=== PATIENT | female | born 2000 | race Caucasian/White ===

== ENCOUNTER 2020-01-18 08:02 | Inpatient (IN) ==
[2020-01-18] MEDS ORDERED: OXYTOCIN 30 UNITS/500 ML BAG IV PRN ×2 (08:34)
[2020-01-18] MEDS: LACTATED RINGER'S 1,000 ML IV PRN ×3 (08:45→13:12)
--- NOTE | 2020-01-18 08:53 | Medical Student H&P ---
Date of Service January 18, 2020 Assessment & Plan Admission and Anticipated Discharge Date Admission Date: Patient would receive pitocin so as to induce labor and once head is at appropriate station, artificial rupture of membrane would be perfomred. Patient would also receive an epidural for pain control when desired. environment would be continually monitored via the heart monitor. ( Category 1) History of Present Illness Chief Complaint: Patient is here to be induced Patient is a 19 year old female presenting at 40 weeks 5 days estimated gestational age as determined by last menstrual period. Patient states receiving Chrissy at 16 weeks because she has a prior history of delivery and spontaneous . Patient is currently Hep B -ve, HIV -ve, rubella immune and COVID-19 -ve. She also had a negative gonorrhea and chlamydia test. Patient's blood type is O +ve. Patient has received adequate immunizations for chronological age as well as her yearly influenza vaccine. Patient hasn't had an abnormal glucose tolerance test result. Patient declined to receive a cell free DNA test for cystic fibrosis or spinal muscular atrophy. Patient denies any bleeding or fluid leak. Patient denies any fever, headache, chest pain, shortness of breath or fatigue. Allergies Allergy/AdvReac Type Severity Reaction Status Date / Time blueberry Allergy Severe ANAPHYLAXIS Verified 01/18/20 09:07 ANESTHESIA Allergy Unknown PSEUDOCHLOINESTERASE Uncoded 01/18/20 09:07 DEFIENCY PLASTIC TAPE Allergy Unknown RASH Uncoded 01/18/20 09:07 Home Medications Home Medications Medication Instructions Recorded Confirmed Type prenat.vits,charity,qpa-zoor-yzulx 1 tab PO DAILY 06/23/19 01/11/20 History ondansetron HCl 4 mg tablet 4 mg PO Q6H PRN #30 tab 06/24/19 01/11/20 Rx Patient History Medical History (Updated 01/02/20 @ 11:09 by Sander Floyd Jr, MD, FACOG) Anxiety and depression Encounter for anatomic survey Encounter for pre-operative examination High cholesterol Hx of migraines Miscarriage Ovarian cyst Pseudocholinesterase deficiency Surgical History Hx of tonsillectomy [place] teeth removed Family History (Updated 06/23/19 @ 13:59 by Pam Bateman) Grandfather (Paternal) Diabetes Dyslipidemia Blood clot in vein Grandmother (Paternal) Diabetes Grandmother (Maternal) Heart disease Hypertension Kidney stones, calcium oxalate Grandfather (Paternal) Heart disease Aunt Peter's thyroiditis Thyroid disease Endometriosis Mother Thyroid disease Endometriosis Social History (Updated 06/23/19 @ 14:02 by Pam Bateman) Smoking Status: Never smoker Second Hand Exposure: No; Hx Alcohol Use: No Hx Substance Use: No Preferred Language: Samoan Communication Ability: Effective Beliefs That Will Affect Care: None marital status: Single marital status details: Juvencio Chu (31) [phone] Current Living Situation: Significant Other and Other Current Living Situation Comment: SO and daughter current occupational status: unemployed Feels Safe at Home: Yes OB History G1- uncomplicated vaginal delivery at 34 weeks G2- spontaneous 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 She has irregular menstrual period occurring every 28-31 days. Never had an STD. She doesn't recall having any pap smears done. Review of Systems All systems reviewed & are unremarkable except as noted in HPI & below Physical Exam Constitutional: WD/WN, vitals as above Neck: normal visual inspection Respiratory: normal respiratory effort, lungs clear to auscultation Cardiovascular: RRR, no murmur, no edema Gastrointestinal (Abdomen): Gravid Psychiatric: A+Ox3, euthymic affect Genitourinary: Manual OB Exam: + cervical dilation (soft) 3 cm, + cervical effacement 50% and + station (- 3) per Dr. Gore Monitoring External Monitor Heart Rate Monitor - 150 bpm baseline with accelerations (10-15 bpm), moderate variability, rare decellerations Tocodynamometer Rare contractions Results & Data ([facility]) Vital Signs (Past 12 Hours) Vital Signs Pulse BP 01/18/20 08:28 93 H 120/77 Code Status & VTE Plan VTE Prophylaxis Plan VTE Prophylaxis will be ordered: Yes
[2020-01-18 08:57] LABS: Hematocrit (blood only) 37.2 % (37-47); Hemoglobin 12.3 g/dL (12.0-16.0); Mean Corpuscular Hemoglobin 28.8 pg (25-34); Mean Corpuscular Volume 87.1 fL (80-100); Mean Platelet Volume 9.7 fL (7.4-10.4); Platelet Count 214 K/uL (130-400); RDW Coefficient of Variation 14.4 % (11.5-14.5); RDW Standard Deviation 45.7 fL (36.4-46.3); Red Blood Count 4.27 M/uL (4.2-5.4); White Blood Count 7.47 K/uL (4.8-10.8)
[2020-01-18 09:02] LABS: Mean Corpuscular Hgb Conc 33.1 g/dL (32-36)
--- NOTE | 2020-01-18 11:10 | Labor Progress Brief Note ---
Date of Service January 18, 2020 Subjective Tolerating contractions, declines epidural at this point Assessment & Plan (1) Post term over 40 weeks: Induction of labor continues. Admission and Anticipated Discharge Date Admission Date: January 18, 2020 Physical Exam Physical Exam: /-2 AROM clear fluid FHT Cat 1 [place] Q3-4 Pit @ 7 Results & Data ([facility]) Vital Signs (Past 12 Hours) Vital Signs Temp Pulse Resp BP 01/18/20 10:51 18 01/18/20 10:13 89 133/78 01/18/20 10:12 18 01/18/20 09:50 18 01/18/20 09:37 18 01/18/20 09:06 90 132/86 01/18/20 09:05 18 01/18/20 08:28 93 H 120/77 01/18/20 08:19 98.8 F 20 Coding Level of Care Code None Diagnoses Post term over 40 weeks O48.0
[2020-01-18] MEDS ORDERED: ePHEDrine sulfate 50 MG/ML AMP ONE (12:41)
[2020-01-18] MEDS ORDERED: BUPIVACAINE 0.25% 30 ML VIAL ONE (12:41)
[2020-01-18] MEDS ORDERED: fentaNYL citrate 100 MCG/2 ML VIAL ONE (12:41)
[2020-01-18] MEDS ORDERED: fentaNYL 2MCG/ML ROPIV 1.25MG/ML 100 ML BAG EPI ONE (12:41)
[2020-01-18] MEDS ORDERED: DiphenhydrAMINE HCL 50 MG/ML VIAL IV PRN (13:10)
[2020-01-18] MEDS ORDERED: NALOXONE HCL 0.4 MG/1 ML VIAL/CARP IV PRN (13:10)
[2020-01-18] MEDS ORDERED: fentaNYL 2MCG/ML ROPIV 1.25MG/ML 100 ML BAG EPI PRN (13:10)
[2020-01-18] MEDS ORDERED: ePHEDrine sulfate 50 MG/ML AMP IV PRN (13:10)
[2020-01-18] MEDS ORDERED: ONDANSETRON INJ 2 MG/ML 2 ML VIAL IV PRN (13:10)
[2020-01-18] MEDS ORDERED: NALOXONE HCL 1 MG in SODIUM CHLORIDE 0.9% 1000ML 1,000 ML IV PRN (13:10)
--- NOTE | 2020-01-18 13:17 | Anesthesiology Consultation ---
Date of Service January 18, 2020 Covid 19 negative on 01/11/20. Assessment & Plan Chart Review Chart Review: Patient NOT seen in Pre Admission Testing and Acceptable Risk for Labor Epidural Consults Requested none ASA ASA2 Proposed Anesthesia Anesthesia Type: Labor Epidural and CSE Risk / Benefits Reviewed With: PT / POA / Parent / Guardian, Accepts Plan and Informed Consent Obtained History Height/Weight Height: 5 ft 5 in Weight: 124.194 kg Allergies Allergy/AdvReac Type Severity Reaction Status Date / Time blueberry Allergy Severe ANAPHYLAXIS Verified 01/18/20 09:07 ANESTHESIA Allergy Unknown PSEUDOCHLOINESTERASE Uncoded 01/18/20 09:07 DEFIENCY PLASTIC TAPE Allergy Unknown RASH Uncoded 01/18/20 09:07 Medications Home Medications Medication Instructions Recorded Confirmed Last Taken prenat.vits,charity,uia-snex-goplr 1 tab PO DAILY 06/23/19 01/11/20 Unknown ondansetron HCl 4 mg tablet 4 mg PO Q6H PRN #30 tab 06/24/19 01/11/20 Unknown Active Medications Generic Name Dose Route Start Last Admin Trade Name Renata PRN Reason Stop Dose Admin Lactated Ringer's 1,000 mls @ 125 mls/hr 01/18/20 08:34 01/18/20 13:12 Lr IV 01/20/20 08:33 999 mls/hr .Q8H PRN Administration L&D Protocol Protocol Oxytocin 30 units in 500 mls @ 7 mls/hr 01/18/20 08:34 01/18/20 10:51 Pitocin IV 01/20/20 08:33 0.42 units/hr .Q24H PRN 7 mls/hr Labor Induction/Augmentation Titration Protocol 0.42 UNITS/HR NPO Date Last Intake of Fluids: 01/18/20 Time Last Intake of Fluids: 12:00 Date Last Intake of Solids: 01/18/20 Time Last Intake of Solids: 08:00 Past Medical History Medical History Anxiety and depression Encounter for anatomic survey Encounter for pre-operative examination High cholesterol Hx of migraines Miscarriage Ovarian cyst Pseudocholinesterase deficiency Exercise / Class Metabolic Activity II 4-5 Yardwork/Stairs/Walk up hill Past Family History Family History Grandfather (Paternal) Diabetes Dyslipidemia Blood clot in vein Grandmother (Paternal) Diabetes Grandmother (Maternal) Heart disease Hypertension Kidney stones, calcium oxalate Grandfather (Paternal) Heart disease Aunt Peter's thyroiditis Thyroid disease Endometriosis Mother Thyroid disease Endometriosis Past Surgical History Surgical History Hx of tonsillectomy [place] teeth removed Past Anesthesia History No Hx of Anesthesia Complications, No Family Hx of Anesthesia Complications and Pseudocholinesterase Deficiency History of PONV No Hx of PONV and No Hx of Motion Sickness Social History Smoking Status: Never smoker Hx Alcohol Use: No Hx Substance Use: No Review of Systems no chest pain or sob Physical Exam Vital Signs Last Vital Signs Temp 37.1 C 01/18/20 08:19 Pulse 89 01/18/20 13:14 Resp 18 01/18/20 11:57 BP 140/87 01/18/20 13:03 Pulse Ox 97 01/18/20 13:14 ENMT Mouth: no TMJ abnormality Thyromental Distance: > or= 3.5 Finger Breadths Mallampati Class: II Neck normal visual inspection Respiratory normal respiratory effort Auscultation: lungs clear to auscultation bilaterally Cardiovascular Rate/Rhythm: regular rate and regular rhythm Musculoskeletal Spine: normal cervical ROM Neurologic moves all extremities Psychiatric Orientation: alert and oriented x 3 Testing Laboratory Results 01/18/20 08:44
--- NOTE | 2020-01-18 18:40 | Delivery Summary ---
Vaginal Delivery Summary Date of Service January 18, 2020 Vaginal Delivery Summary DIAGNOSES: 1. [place] intrauterine at 40w5d gestation. 2. Induction. 3. Group B Streptococcus Neg. PROCEDURE: Spontaneous vaginal delivery without laceration. SURGEON: Lisa Deutsch MD. ASSISTANT TERMINAL MANAGER: None. ESTIMATED BLOOD LOSS: 300 mL. COMPLICATIONS: None. PLACENTA: Spontaneous and intact with a 3-vessel cord. DISPOSITION: Stable to labor and delivery. DESCRIPTION: The patient pushed well and brought the head to in OA position. The 's head was allowed to deliver with contraction force and no further active pushing, with the perineum protected during this time. The shoulders delivered easily with a maternal pushing effort. There was one nuchal cord. The right shoulder was anterior. The shoulders and body delivered without any difficulty, and the infant was placed on the maternal abdomen. It was vigorous and moving all extremities, and making respiratory efforts. The cord was doubly clamped by the MD and then cut by the FOB. The placenta delivered spontaneously and was noted to be intact and with a 3VC. The cervix, vagina and perineum were examined and were found to be without defect requiring repair. The fundus was firm and lochia minimal immediately after delivery.
[2020-01-18] MEDS ORDERED: SUPERCREAM 0.870% 15 GM JAR EXT PRN (19:12)
[2020-01-18] MEDS ORDERED: HYDROCORTISONE ACETATE 25 MG SUPP PR PRN (19:12)
[2020-01-18] MEDS ORDERED: ACETAMINOPHEN 325 MG TAB PO PRN (19:12)
[2020-01-18] MEDS ORDERED: OXYCODONE/ACETAMINOPHEN 5mg/325mg TAB PO PRN (19:12)
[2020-01-18] MEDS ORDERED: BENZOCAINE 20% AER SPR 82.5 GM CAN EXT PRN (19:12)
[2020-01-18] MEDS ORDERED: DIPHTHERIA/TETANUS/PERTUSSIS 0.5 ML SYR/VIAL IM ONE (19:12)
--- NOTE | 2020-01-18 19:31 | Anesthesia Procedure Note ---
Date of Service January 18, 2020 Anesthesia Post Epidural Note Vital Signs Vital Signs: Temp Pulse Resp BP Pulse Ox 37.1 C 106 H 18 124/63 100 01/18/20 17:00 01/18/20 19:27 01/18/20 19:11 01/18/20 19:27 01/18/20 18:28 Pain Intensity Abdomen: Pain Intensity: 0 Notes Mental Status: alert / awake / arousable and participated in evaluation Nausea / Vomiting: adequately controlled Pain: adequately controlled Airway Patency, RR, SpO2: stable & adequate BP & HR: stable & adequate Hydration State: stable & adequate Neuraxial Anesthesia: was administered and sensory block is resolving Anesthetic Complications: no major complications apparent and Pt Satisfied with anesthetic care Epidural: Removed without complications and With tip intact
[2020-01-18] MEDS: DOCUSATE SODIUM 100 MG CAP PO SCH (21:41)
[2020-01-19 06:12] LABS: Hemoglobin 10.6 g/dL (12.0-16.0); Mean Corpuscular Hemoglobin 28.7 pg (25-34); Mean Corpuscular Hgb Conc 33.1 g/dL (32-36); Mean Corpuscular Volume 86.7 fL (80-100); Mean Platelet Volume 9.8 fL (7.4-10.4); Platelet Count 170 K/uL (130-400); RDW Coefficient of Variation 14.3 % (11.5-14.5); Red Blood Count 3.69 M/uL (4.2-5.4); White Blood Count 8.65 K/uL (4.8-10.8)
--- NOTE | 2020-01-19 07:03 | Obstetrical Progress Note ---
Date of Service January 19, 2020 Assessment & Plan (1) Post term over 40 weeks: Recovering normally PPD#1. Continue routine pp care. Subjective Ambulation: ambulating normally Voiding: no voiding problems Passing Gas:: Yes Diet Tolerance:: regular diet Lochia:: Small Physical Exam Constitutional WD/WN, vitals as above Eyes PERRL, conjunctivae normal, anicteric sclerae Neck normal visual inspection Respiratory normal respiratory effort and able to speak in complete sentences; no respiratory distress and no labored breathing Cardiovascular Rate/Rhythm: regular rate and regular rhythm Extremities: no edema Chest (Breasts) Chest: normal inspection of chest Gastrointestinal (Abdomen) Inspection/Auscultation: abdomen normal to inspection Soft, postgravid Psychiatric A+Ox3, euthymic affect Genitourinary OB Exam Abdomen: + fundal height Fundus: + firm and + relation to umbilicus (fundus just below umbilicus); not tender Results & Data ([facility]) Vital Signs (Past 12 Hours) Vital Signs Temp Pulse Pulse Resp BP BP 01/19/20 03:30 97.9 F 93 H 18 122/74 01/18/20 23:15 98.1 F 98 H 18 133/89 01/18/20 21:30 120 H 18 124/70 01/18/20 20:56 121 H 124/70 01/18/20 20:42 110 H 18 127/70 01/18/20 20:27 121 H 133/86 01/18/20 20:11 131 H 18 131/63 01/18/20 19:56 109 H 129/62 01/18/20 19:41 103 H 18 120/60 01/18/20 19:27 106 H 18 120/60 01/18/20 19:11 125 H 18 129/80
--- NOTE | 2020-01-19 07:20 | Medical Student Progress Note ---
Date of Service January 19, 2020 Assessment & Plan Admission and Anticipated Discharge Date Admission Date: Patient is a 19 year old with presenting on post- day one after the uncomplicated spontaneous vaginal delivery of an 8lb girl at 40weeks 5days estimated gestational age by LMP. Patient has been transferred to the hospital floor where she is recuperating. Blood work would be drawn and compared to prior labs. Patient would receive maternal education on care. Patient is GBS -ve, A+ and has positive rubella titers. Subjective Patient is a 19 year old female presenting on post- day one after the uncomplicated spontaneous vaginal delivery of an 8lb girl. Patient states receiving Chrissy injections during the due to a prior history of labor and a prior history of spontaneous . Patient states feeling generally well with a good mood although she only got 3 hours of sleep overnight. Patient intends to bottle feed her baby and started doing so overnight. She denies any difficulty urinating and hasn't bowel movements or passage of gas. Patient hasn't experienced any difficulty ambulating and states no pain apart from mild abdominal tenderness. Patient experienced minor bloody lochia. She denies shortness of breath, headaches, lightheadedness, chest pains or palpitations Physical Exam Constitutional: WD/WN, vitals as above Neck: normal visual inspection Respiratory: normal respiratory effort, lungs clear to auscultation Cardiovascular: Rate/Rhythm: regular rate and regular rhythm Extremities: + pedal edema +2 mild pedal edema present up to tibia. Gastrointestinal (Abdomen): Inspection/Auscultation: abdomen normal to inspection and normal bowel sounds Percussion/Palpation: + abdomen tender (to palpations) Psychiatric: A+Ox3, euthymic affect Genitourinary: OB Exam Abdomen: + fundal height (3-5 cm below the umbilicus) Fundus: + firm Results & Data ([facility]) Vital Signs (Past 12 Hours) Vital Signs Temp Pulse Pulse Resp BP BP 01/19/20 03:30 36.6 C 93 H 18 122/74 01/18/20 23:15 36.7 C 98 H 18 133/89 01/18/20 21:30 120 H 18 124/70 01/18/20 20:56 121 H 124/70 01/18/20 20:42 110 H 18 127/70 01/18/20 20:27 121 H 133/86 01/18/20 20:11 131 H 18 131/63 01/18/20 19:56 109 H 129/62 01/18/20 19:41 103 H 18 120/60 01/18/20 19:27 106 H 18 120/60 01/18/20 19:11 125 H 18 129/80
[2020-01-19] MEDS: PRENATAL VITAMIN 1 TAB PO SCH (09:24)
[2020-01-19] MEDS: DOCUSATE SODIUM 100 MG CAP PO SCH ×2 (09:24→20:53)
[2020-01-19] MEDS: IBUPROFEN 600 MG TAB PO PRN ×2 (10:56→16:41)
[2020-01-20] MEDS: IBUPROFEN 600 MG TAB PO PRN (04:55)
[2020-01-20 05:51] LABS: Hematocrit (blood only) 31.6 % (37-47); Hemoglobin 10.4 g/dL (12.0-16.0)
--- NOTE | 2020-01-20 07:01 | Obstetrical Progress Note ---
Date of Service January 20, 2020 Assessment & Plan (1) Encounter for care and examination after delivery: Post day 2 from [facility]. Doing well. Stable for discharge Subjective Ambulation: ambulating normally Voiding: no voiding problems Passing Gas:: Yes Diet Tolerance:: regular diet Lochia:: Moderate Physical Exam Constitutional WD/WN, vitals as above Respiratory normal respiratory effort; no respiratory distress and no labored breathing Gastrointestinal (Abdomen) Inspection/Auscultation: abdomen normal to inspection; abdomen not distended Percussion/Palpation: abdomen soft; abdomen nontender, no guarding and abdomen not rigid Genitourinary OB Exam Abdomen: + fundal height Fundus: + firm and + relation to umbilicus (Below); not tender and not boggy Results & Data ([facility]) Vital Signs (Past 12 Hours) Vital Signs Temp Pulse Resp BP Pulse Ox 01/19/20 23:55 36.7 C 92 H 17 112/75 96 01/19/20 20:10 36.7 C 100 H 17 110/76 96
[2020-01-20] MEDS: DOCUSATE SODIUM 100 MG CAP PO SCH (07:59)
[2020-01-20] MEDS: PRENATAL VITAMIN 1 TAB PO SCH (07:59)
== END 2020-01-20 10:30 | disposition home or self-care (01) | DRG 807 ==
LOC: 4S1 08:02 → 4S2 21:30

== ENCOUNTER 2021-02-12 07:56 | Inpatient (IN) ==
[2021-02-12] MEDS ORDERED: OXYTOCIN 30 UNITS/500 ML BAG IV PRN ×3 (08:10→16:20)
[2021-02-12 08:28] LABS: Hematocrit (blood only) 33.1 % (37-47); Hemoglobin 10.9 g/dL (12.0-16.0); Mean Corpuscular Hemoglobin 27.7 pg (25-34); Mean Corpuscular Hgb Conc 32.9 g/dL (32-36); Mean Platelet Volume 9.8 fL (7.4-10.4); Platelet Count 226 K/uL (130-400); RDW Coefficient of Variation 14.2 % (11.5-14.5); RDW Standard Deviation 43.7 fL (36.4-46.3); Red Blood Count 3.94 M/uL (4.2-5.4); White Blood Count 7.19 K/uL (4.8-10.8)
--- NOTE | 2021-02-12 08:53 | History & Physical Report ---
Date of Service February 12, 2021 Assessment & Plan (1) Post term over 40 weeks: (2) Obesity affecting : Plan: admit, iv, labs, start pitocin and arom. fhts categ 1. anticip . Admission and Anticipated Discharge Date Admission Date: February 12, 2021 History of Present Illness Chief Complaint: planned induction Primary Care Provider: Diomedes Mejia 20yo at 40 4/7 wks ega for planned elective induction for postdates. Patient denies new complaints or concerns. No rom, no vb. +FM. No ctx. PNC c/b 1. obesity 2. h/o PTD. on vincent 3. acetylcholinesterase def 4. ascus pap, needs pap pp 5. had nl echo done due to not able to see heart anatomy on routine meng u/s PNL rh pos, ri, gbs neg OBH: x 2, sab x 1 GYNH: nl paps no stds Allergies Allergy/AdvReac Type Severity Reaction Status Date / Time blueberry Allergy Severe ANAPHYLAXIS Verified 02/11/21 13:58 succinylcholine AdvReac Severe pseudocholinesterase Verified 02/11/21 13:58 deficiency ANESTHESIA Allergy Unknown PSEUDOCHLOINESTERASE Uncoded 02/11/21 13:58 DEFIENCY PLASTIC TAPE Allergy Unknown RASH Uncoded 02/11/21 13:58 Home Medications Medication Instructions Recorded Confirmed Type prenat.vits,charity,xak-czds-eojzh 1 tab PO DAILY 06/13/20 02/11/21 History Patient History Medical History (Updated 12/06/20 @ 13:36 by Lisa Deutsch MD) Anxiety and depression Encounter for anatomic survey Encounter for pre-operative examination High cholesterol Hx of migraines Miscarriage Ovarian cyst Pseudocholinesterase deficiency Varicella vaccination Surgical History Hx of tonsillectomy [place] teeth removed Family History (Updated 06/13/20 @ 09:57 by Felicity Maxwell) Grandfather (Paternal) Diabetes Dyslipidemia Blood clot in vein Grandmother (Paternal) Diabetes Grandmother (Maternal) Heart disease Hypertension Kidney stones, calcium oxalate Breast cancer Grandfather (Paternal) Heart disease Aunt Peter's thyroiditis Thyroid disease Endometriosis Mother Thyroid disease Endometriosis Ovarian cancer Denies family history of Colorectal cancer Social History (Updated 06/13/20 @ 09:58 by Felicity Tyler Smoking Status: Former smoker Second Hand Exposure: No; Hx Alcohol Use: No Hx Substance Use: No Preferred Language: Malian Communication Ability: Effective Beliefs That Will Affect Care: None marital status: marital status details: Juvencio Chu (32) [phone] Current Living Situation: Spouse and Family Current Living Situation Comment: lives with spoue, 2 children, cat-spouse changing litter current occupational status: unemployed Feels Safe at Home: Yes Assistive Devices: None Review of Systems as per Subjective / HPI Physical Exam Constitutional: WD/WN, vitals as above Respiratory: normal respiratory effort, lungs clear to auscultation Cardiovascular: Rate/Rhythm: regular rate and regular rhythm Gastrointestinal (Abdomen): soft gravid nt Musculoskeletal: no edema nontender calves Neurologic: grossly normal Psychiatric: A+Ox3, euthymic affect Genitourinary: OB Exam Abdomen: + estimated weight (8-9#) Manual OB Exam: + cervical dilation (2.5), + cervical effacement (long) and + station -2 OB Exam Monitor Tracing: + external FHT monitor used, + external uterine monitor used (no ctx), + category I and + normal FHT variability Results & Data ([facility]) Vital Signs (Past 12 Hours) Vital Signs Pulse BP 02/12/21 08:02 96 H 126/77 Coding Level of Care Code None Diagnoses Post term over 40 weeks O48.0 Obesity affecting O99.210
[2021-02-12] MEDS: LACTATED RINGER'S 1,000 ML IV PRN ×2 (09:25→14:22)
--- NOTE | 2021-02-12 11:18 | Labor Progress Brief Note ---
Date of Service February 12, 2021 Subjective feels some ctx, not really seeing on monitor Assessment & Plan (1) Obesity affecting : (2) Post term over 40 weeks: Plan: will see if arom helps labor. c/w pit. fhts categ 1 Admission and Anticipated Discharge Date Admission Date: February 12, 2021 Physical Exam Constitutional: WD/WN, vitals as above Genitourinary: Manual OB Exam: + cervical dilation 3 cm, + cervical effacement (long), + station -2 and + amniotic fluid (AROM) clear (minimal, ? if arom sucessful. ) OB Exam Monitor Tracing: + external FHT monitor used (130 mod variability), + external uterine monitor used (no ctx traced. ), + category I and + normal FHT variability Pit at 5 Results & Data ([facility]) Vital Signs (Past 12 Hours) Vital Signs Temp Pulse Resp BP 02/12/21 11:10 87 131/84 02/12/21 09:35 98.1 F 20 02/12/21 08:02 98.1 F 96 H 20 126/77 Coding Level of Care Code None Diagnoses Obesity affecting O99.210 Post term over 40 weeks O48.0
[2021-02-12] MEDS ORDERED: SODIUM CHLORIDE 0.9% INJ 10 ML VIAL ONE (13:55)
[2021-02-12] MEDS ORDERED: fentaNYL citrate 100 MCG/2 ML VIAL ONE (13:55)
[2021-02-12] MEDS ORDERED: ePHEDrine sulfate 50 MG/ML AMP ONE (13:55)
[2021-02-12] MEDS ORDERED: BUPIVACAINE 0.25% 30 ML VIAL ONE (13:55)
[2021-02-12] MEDS ORDERED: fentaNYL 2MCG/ML ROPIVACAINE 1.25MG/ML 100 ML BAG EPI ONE (13:56)
--- NOTE | 2021-02-12 14:03 | Labor Progress Brief Note ---
Date of Service February 12, 2021 Subjective more pain with ctx Assessment & Plan (1) Post term over 40 weeks: (2) Obesity affecting : Plan: good cx change. desires epidural. will adjust position to see about fhts. categ 2 currently. Admission and Anticipated Discharge Date Admission Date: February 12, 2021 Physical Exam Constitutional: WD/WN, vitals as above Genitourinary: Manual OB Exam: + cervical dilation 5 cm, + cervical effacement 50% and + station -1 OB Exam Monitor Tracing: + external FHT monitor used (150 mod variability), + external uterine monitor used (irreg), + normal FHT variability and + variable decelerations (vs. early decels) Results & Data ([facility]) Vital Signs (Past 12 Hours) Vital Signs Temp Pulse Resp BP 02/12/21 13:17 88 130/89 02/12/21 11:10 87 131/84 02/12/21 09:35 98.1 F 20 02/12/21 08:02 98.1 F 96 H 20 126/77 Coding Level of Care Code None Diagnoses Post term over 40 weeks O48.0 Obesity affecting O99.210
--- NOTE | 2021-02-12 14:15 | Anesthesiology Consultation ---
Date of Service February 12, 2021 Assessment & Plan (1) Encounter for pre-operative examination: Chart Review Chart Review: Acceptable Risk for Labor Epidural Consults Requested none History Height/Weight Height: 5 ft 5 in Weight: 124.284 kg Allergies Allergy/AdvReac Type Severity Reaction Status Date / Time blueberry Allergy Severe ANAPHYLAXIS Verified 02/11/21 13:58 succinylcholine AdvReac Severe pseudocholinesterase Verified 02/11/21 13:58 deficiency ANESTHESIA Allergy Unknown PSEUDOCHLOINESTERASE Uncoded 02/11/21 13:58 DEFIENCY PLASTIC TAPE Allergy Unknown RASH Uncoded 02/11/21 13:58 Medications Active Medications Generic Name Dose Route Start Last Admin Trade Name Freq PRN Reason Stop Dose Admin Oxytocin 30 units in 500 mls @ 13 mls/hr 02/12/21 08:10 02/12/21 12:54 Pitocin IV 02/14/21 08:09 0.78 units/hr .Q24H PRN 13 mls/hr Labor Induction/Augmentation Titration Protocol 0.78 UNITS/HR Lactated Ringer's 1,000 mls @ 125 mls/hr 02/12/21 08:10 02/12/21 13:47 Lr IV 02/14/21 08:09 999 mls/hr .Q8H PRN Infusion L&D Protocol Protocol NPO Date Last Intake of Fluids: 02/12/21 Time Last Intake of Fluids: 14:13 Date Last Intake of Solids: 02/12/21 Past Medical History Medical History Anxiety and depression Encounter for anatomic survey Encounter for pre-operative examination High cholesterol History of premature rupture of membranes (PPROM) PSPROM at 30 weeks delivery at 34 weeks at [facility] Hx of migraines Miscarriage Ovarian cyst Pseudocholinesterase deficiency Varicella vaccination Past Family History Family History Grandfather (Paternal) Diabetes Dyslipidemia Blood clot in vein Grandmother (Paternal) Diabetes Grandmother (Maternal) Heart disease Hypertension Kidney stones, calcium oxalate Breast cancer Grandfather (Paternal) Heart disease Aunt Peter's thyroiditis Thyroid disease Endometriosis Mother Thyroid disease Endometriosis Ovarian cancer Denies family history of Colorectal cancer Past Surgical History Surgical History Hx of tonsillectomy [place] teeth removed Past Anesthesia History Pseudocholinesterase Deficiency Social History Smoking Status: Former smoker Hx Alcohol Use: No Hx Substance Use: No substance use type: does not use Physical Exam Vital Signs Last Vital Signs Temp 36.7 C 02/12/21 09:35 Pulse 88 02/12/21 13:17 Resp 20 02/12/21 09:35 BP 130/89 02/12/21 13:17 Testing Laboratory Results 02/12/21 08:18
[2021-02-12] MEDS ORDERED: NALBUPHINE HCL INJ 10 MG/ML AMP IV PRN (14:57)
[2021-02-12] MEDS ORDERED: ePHEDrine sulfate 50 MG/ML AMP IV PRN (14:57)
[2021-02-12] MEDS ORDERED: NALOXONE HCL 0.4 MG/1 ML VIAL/CARP IV PRN (14:57)
[2021-02-12] MEDS ORDERED: ONDANSETRON INJ 2 MG/ML 2 ML VIAL IV PRN (14:57)
[2021-02-12] MEDS ORDERED: NALOXONE HCL 1 MG in SODIUM CHLORIDE 0.9% 1000ML 1,000 ML IV PRN (14:57)
[2021-02-12] MEDS ORDERED: fentaNYL 2MCG/ML ROPIVACAINE 1.25MG/ML 100 ML BAG EPI PRN (14:57)
[2021-02-12] MEDS ORDERED: diphenhydrAMINE 50 MG/ML VIAL IV PRN (14:57)
--- NOTE | 2021-02-12 16:17 | Delivery Summary ---
Vaginal Delivery Summary Date of Service February 12, 2021 Vaginal Delivery Summary The patient dilated to complete and pushed to deliver a viable female infant Apgars 8 and 9 via over intact perineum. Mouth and nose bulb suctioned at perineum. Shoulders and body delivered with ease. was vigorous and crying at . Cord clamped at 30 seconds of life and infant to maternal abdomen where the cord was then doubly clamped and cut. Placenta delivered spontaneously and intact, three-vessel cord. Hemostasis achieved with dilute pitocin and uterine massage and drainage of the bladder for approximately 130 cc under sterile conditions. Cervix and sulci intact. EBL 300 cc. Mother and baby stable recovery. [facility] Vaginal Delivery Charge Vaginal Delivery Codes: 39863 global code for the antepartum, delivery, and post- Delivery Type Details:
[2021-02-12] MEDS ORDERED: ACETAMINOPHEN 325 MG TAB PO PRN (16:20)
[2021-02-12] MEDS ORDERED: OXYTOCIN 20 UNITS in LACTATED RINGER'S 1,000 ML IV SCH (16:20)
[2021-02-12] MEDS ORDERED: BENZOCAINE 20% AER SPR 82.5 GM CAN EXT PRN (16:20)
[2021-02-12] MEDS ORDERED: DIPHTHERIA/TETANUS/PERTUSSIS 0.5 ML SYR/VIAL IM ONE (16:20)
[2021-02-12] MEDS ORDERED: SUPERCREAM 0.870% 15 GM JAR EXT PRN (16:20)
[2021-02-12] MEDS ORDERED: HYDROCORTISONE ACETATE 25 MG SUPP PR PRN (16:20)
[2021-02-12] MEDS ORDERED: oxyCODONE/ACETAMINOPHEN 5mg/325mg TAB PO PRN (16:20)
--- NOTE | 2021-02-12 18:20 | Anesthesia Procedure Note ---
Date of Service February 12, 2021 Anesthesia Post Epidural Note Vital Signs Vital Signs: Temp Pulse Resp BP Pulse Ox 36.7 C 114 H 20 128/78 100 02/12/21 09:35 02/12/21 18:18 02/12/21 09:35 02/12/21 18:18 02/12/21 16:01 Notes Mental Status: alert / awake / arousable and participated in evaluation Nausea / Vomiting: adequately controlled Pain: adequately controlled Airway Patency, RR, SpO2: stable & adequate BP & HR: stable & adequate Hydration State: stable & adequate Neuraxial Anesthesia: was administered and sensory block is resolving Anesthetic Complications: no major complications apparent and Pt Satisfied with anesthetic care Epidural: Removed without complications and With tip intact Notes: Epidural site clean, dry and intact. No signs of edema, erythema or bruising at insertion site. Pt instructed to request anesthesia if she has residual lower extremity numbness or if she develops lower extremity pain or weakness, back pain or headache.
[2021-02-12] MEDS: DOCUSATE SODIUM 100 MG CAP PO SCH (20:32)
[2021-02-12] MEDS: IBUPROFEN 600 MG TAB PO PRN (20:32)
--- NOTE | 2021-02-13 06:44 | Obstetrical Progress Note ---
Date of Service February 13, 2021 Assessment & Plan (1) examination following vaginal delivery: doing well, ready for d/c home, instructions reviewed. f/u 6wk pp check. bottle feeding, rh pos, ri. Day #:: 1 Subjective Ambulation: ambulating normally Voiding: no voiding problems Diet Tolerance:: regular diet Lochia:: Small Feeding Type:: bottle feeding denies pain Physical Exam Constitutional WD/WN, vitals as above Respiratory normal respiratory effort, lungs clear to auscultation Cardiovascular Rate/Rhythm: regular rate and regular rhythm Gastrointestinal (Abdomen) Inspection/Auscultation: abdomen normal to inspection Percussion/Palpation: abdomen soft Fundus firm 3cm down Musculoskeletal nt calves tr edema Neurologic grossly normal Psychiatric A+Ox3, euthymic affect Results & Data ([facility]) Vital Signs (Past 12 Hours) Vital Signs Temp Pulse Pulse Pulse Resp BP BP 02/13/21 03:45 98.1 F 83 18 02/12/21 23:30 98.6 F 83 18 02/12/21 19:50 99.1 F 100 H 18 112/74 02/12/21 18:48 110 H 143/84 H BP Pulse Ox 02/13/21 03:45 112/74 02/12/21 23:30 111/74 02/12/21 19:50 97 02/12/21 18:48
[2021-02-13] MEDS: DOCUSATE SODIUM 100 MG CAP PO SCH (07:51)
[2021-02-13] MEDS ORDERED: PRENATAL VITAMIN 1 TAB PO SCH (08:00)
[2021-02-13] MEDS: IBUPROFEN 600 MG TAB PO PRN (14:13)
== END 2021-02-13 17:10 | disposition home or self-care (01) | DRG 807 ==
LOC: 4S1 07:56 → 4S2 19:58

== ENCOUNTER 2022-03-20 07:52 | Inpatient (IN) ==
[2022-03-20] MEDS ORDERED: LIDOCAINE 1% LOCAL 20 ML VIAL INFIL PRN (08:04)
[2022-03-20] MEDS ORDERED: OXYTOCIN 30 UNITS/500 ML BAG IV PRN ×3 (08:04→19:48)
[2022-03-20 08:30] LABS: Hematocrit (blood only) 33.9 % (34.1-44.9); Hemoglobin 10.9 g/dl (12.0-16.0); Mean Corpuscular Hgb Conc 32.2 g/dL (32.0-36.0); Mean Corpuscular Volume 80.9 fL (80.0-100.0); Mean Platelet Volume 10.3 fL (9.4-12.3); Platelet Count 244 K/uL (130-400); RDW Coefficient of Variation 15.8 % (11.5-14.5); RDW Standard Deviation 45.8 fL (36.4-46.3); Red Blood Count 4.19 M/uL (3.93-5.22)
--- NOTE | 2022-03-20 08:34 | History & Physical Report ---
Date of Service March 20, 2022 Assessment & Plan (1) 40 weeks gestation of : (2) Encounter for induction of labor: Plan admit, plan pitocin. gbs neg. arom as needed, epidual on demand, anticipate . Admission and Anticipated Discharge Date Admission Date: March 20, 2022 History of Present Illness Chief Complaint: presents for induction Primary Care Provider: NO PCP Patient is a 21yowf with iup at 40 2/7 who presents for induction secondary to postdates. She was seen in the office yesterday and membranes stripped. Was crampy overnight. no lof/vb. hx of abi in first pregnency and a subsequent term delivery x 2. and Delivery Plans Obesity (BMI 40 and higher @ beginning of ) *Growth US @ 32wks *Weekly NSTs @ 34wks *BMI 40 or greater offer detailed/level II anatomy at [facility] Hx delivery @ 34 weeks *plans [facility] History of abnormal PAP--> needs repeat pap 04/2022 Pseudocholinesterase deficiency Flu shot given 02/18/22 SB IOL Post-Dates 03/20 OB Labs: Blood Type O Positive 09/12/21 Antibody Screen NEGATIVE 09/12/21 Hemoglobin 11.3 g/dl (12.0-16.0) L 12/24/21 Hematocrit 34.0 % (34.1-44.9) L 12/24/21 Mean Corpuscular Volume 86.2 fL (80-100) 09/12/21 Platelet Count 245 K/uL (130-400) 09/12/21 Rubella IgG Antibody Immune (Immune) 09/12/21 Rapid Plasma Reagin Nonreactive (Nonreactive) 09/12/21 Hepatitis B Surface Antigen Neg (Neg) 07/24/20 Hepatitis B Surface Antigen. NON-REACTIVE (NON-REACTIVE) 09/12/21 Hepatitis C Antibody (EIA) NON-REACTIVE (NON-REACTIVE) 09/12/21 HIV (1&2) Ab and P24 Ag, 4th Gener Neg (Neg) 07/24/20 HIV (1&2) Ag and Ab Confirmation NON-REACTIVE (NON-REACTIVE) 09/12/21 Glucose 1 Hour 50 gm Load 104 mg/dl (70-130) 12/24/21 OB Optional Labs: Chlamydia trachomatis RNA NOT DETECTED (NOT DETECTED) 09/12/21 Neisseria gonorrhoeae RNA NOT DETECTED (NOT DETECTED) 09/12/21 Labs Reviewed: declines cf/sma/genetics--mln declines afp gbs negative. Allergies Allergy/AdvReac Type Severity Reaction Status Date / Time blueberry Allergy Severe ANAPHYLAXIS Verified 03/19/22 14:03 succinylcholine AdvReac Severe pseudocholinesterase Verified 03/19/22 14:03 deficiency ANESTHESIA Allergy Unknown PSEUDOCHLOINESTERASE Uncoded 03/19/22 14:03 DEFIENCY PLASTIC TAPE Allergy Unknown RASH Uncoded 03/19/22 14:03 Home Medications Medication Instructions Recorded Confirmed Type prenat.vits,charity,[id number]-[id number] 1 tab PO DAILY 08/30/21 03/19/22 History Patient History Medical History Anxiety and depression Encounter for anatomic survey Encounter for pre-operative examination High cholesterol History of premature rupture of membranes (PPROM) PSPROM at 30 weeks delivery [place] [facility] [place]x of migraines Miscarriage Ovarian cyst Pseudocholinesterase deficiency Varicella vaccination Surgical History Hx of tonsillectomy [place] teeth removed Family History Grandfather (Paternal) Diabetes Dyslipidemia Blood clot in vein Grandmother (Paternal) Diabetes Grandmother (Maternal) Heart disease Hypertension Kidney stones, calcium oxalate Breast cancer Grandfather (Paternal) Heart disease Aunt Peter's thyroiditis Thyroid disease Endometriosis Mother Thyroid disease Endometriosis Ovarian cancer Denies family history of Colorectal cancer Social History (Updated 08/30/21 @ 15:07 by Felicity Maxwell) Smoking Status: Former smoker Second Hand Exposure: No; Hx Alcohol Use: No Hx Substance Use: No Preferred Language: Beninese Communication Ability: Effective Visual Impairment: No Limitations Beliefs That Will Affect Care: None marital status: marital status details: Juvencio Chu (33) [phone] Current Living Situation: Spouse and Family Current Living Situation Comment: lives with spouse, 3 children, no pets current occupational status: unemployed current occupation: homemaker Feels Safe at Home: Yes Assistive Devices: None OB History Past Pregnancies Del. Date GA wks Lbr Lgth wt Sex Type del Anes Place Del Prov ? Comment 02/18/15 32 does not know 4lbs 8 oz F Epi dural Other [place] Yes Started laboring at 30 wks, was stopped, SROM at 34 wks after bedrest x4 weeks, transferred to [place]. 04/27/16 Aborted-Spontaneous 01/18/20 40 8lb 12.5oz F Ep idural [facility] Dr. Deutsch No 02/12/21 40 7lb 14oz F Epid ural [facility] Dr. Gutierres No Physical Exam Constitutional: WD/WN, vitals as above Cardiovascular: Extremities: + edema (tr); no calf tenderness Gastrointestinal (Abdomen): obese, soft, nt, nd, gravid Psychiatric: A+Ox3, euthymic affect Genitourinary: cx--3-4/50/-2/soft/mid toco--,oc efm--130s with mod variability, accels to 160s, no decels Results & Data ([facility]) Vital Signs (Past 12 Hours) Vital Signs Pulse BP 03/20/22 08:27 90 125/83 Coding Level of Care Code None Diagnoses 40 weeks gestation of Z3A.40 Encounter for induction of labor Z34.90
[2022-03-20] MEDS: LACTATED RINGER'S 1,000 ML IV PRN ×2 (08:50→15:24)
--- NOTE | 2022-03-20 13:53 | Labor Progress Brief Note ---
Date of Service March 20, 2022 Subjective noting contractions Assessment & Plan (1) Encounter for induction of labor: Plan continue current management. epidural when desires. anticipate . Admission and Anticipated Discharge Date Admission Date: March 20, 2022 Physical Exam Physical Exam: c--4-5/75/-2 arom--clear tooco--q2-4min, pit at 11 efm--125 with mod variability, accels to 150s, no decels Results & Data ([facility]) Vital Signs (Past 12 Hours) Vital Signs Temp Pulse Resp BP 03/20/22 09:00 37.2 C 03/20/22 13:36 81 03/20/22 13:36 128/84 03/20/22 13:06 80 03/20/22 13:06 117/69 03/20/22 12:36 82 03/20/22 12:36 125/82 03/20/22 12:06 83 03/20/22 12:06 132/86 03/20/22 11:36 76 03/20/22 11:36 129/87 03/20/22 11:06 72 03/20/22 11:06 133/85 03/20/22 10:36 82 03/20/22 10:36 123/79 03/20/22 10:06 76 03/20/22 10:06 127/86 03/20/22 08:27 90 125/83 Coding Level of Care Code None Diagnoses Encounter for induction of labor Z34.90
[2022-03-20] MEDS ORDERED: fentaNYL citrate 100 MCG/2 ML VIAL ONE (14:50)
[2022-03-20] MEDS ORDERED: ePHEDrine sulfate 50 MG/ML AMP ONE (14:50)
[2022-03-20] MEDS ORDERED: LIDOCAINE 2%/EPINEPHRINE 1:200,000 20 ML SDV ONE ×2 (14:50→17:11)
[2022-03-20] MEDS ORDERED: BUPIVACAINE 0.25% 30 ML VIAL ONE ×2 (14:50→17:40)
[2022-03-20] MEDS ORDERED: SODIUM CHLORIDE 0.9% INJ 10 ML VIAL ONE (14:50)
[2022-03-20] MEDS ORDERED: fentaNYL 2MCG/ML ROPIVACAINE 1.25MG/ML 100 ML BAG EPI ONE (14:51)
[2022-03-20] MEDS ORDERED: fentaNYL 2MCG/ML ROPIVACAINE 1.25MG/ML 100 ML BAG EPI PRN (14:57)
[2022-03-20] MEDS ORDERED: NALOXONE HCL 1 MG in SODIUM CHLORIDE 0.9% 1000ML 1,000 ML IV PRN (14:57)
[2022-03-20] MEDS ORDERED: NALBUPHINE HCL INJ 10 MG/ML AMP IV PRN (14:57)
[2022-03-20] MEDS ORDERED: ePHEDrine sulfate 50 MG/ML AMP IV PRN (14:57)
[2022-03-20] MEDS ORDERED: NALOXONE HCL 0.4 MG/1 ML VIAL/CARP IV PRN (14:57)
[2022-03-20] MEDS ORDERED: diphenhydrAMINE 50 MG/ML VIAL IV PRN (14:57)
[2022-03-20] MEDS ORDERED: ONDANSETRON INJ 2 MG/ML 2 ML VIAL IV PRN (14:57)
--- NOTE | 2022-03-20 14:59 | Anesthesiology Consultation ---
Date of Service March 20, 2022 Assessment & Plan (1) Encounter for pre-operative examination: Chart Review Chart Review: Patient NOT seen in Pre Admission Testing and Acceptable Risk for Labor Epidural Consults Requested none History Height/Weight Height: 5 ft 5 in Weight: 115.398 kg Allergies Allergy/AdvReac Type Severity Reaction Status Date / Time succinylcholine AdvReac Severe pseudocholinesterase Verified 03/19/22 14:03 deficiency ANESTHESIA Allergy Unknown PSEUDOCHLOINESTERASE Uncoded 03/19/22 14:03 DEFIENCY PLASTIC TAPE Allergy Unknown RASH Uncoded 03/19/22 14:03 Medications Home Medications Medication Instructions Recorded Confirmed Last Taken prenat.vits,charity,hsm-mrla-wseiw 1 tab PO DAILY 08/30/21 03/19/22 Unknown ondansetron HCl 4 mg tablet 4 mg PO Q8H PRN Nausea 03/20/22 03/20/22 Unknown sertraline 50 mg tablet (Zoloft) 50 mg PO DAILY 03/20/22 03/20/22 03/19/22 20:00 Active Medications Generic Name Dose Route Start Last Admin Trade Name Freq PRN Reason Stop Dose Admin Oxytocin 30 units in 500 mls @ 11 mls/hr 03/20/22 08:04 03/20/22 12:47 Pitocin IV 03/22/22 08:03 0.66 units/hr .Q24H PRN 11 mls/hr Labor Induction/Augmentation Titration Protocol 0.66 UNITS/HR Lactated Ringer's 1,000 mls @ 125 mls/hr 03/20/22 08:04 03/20/22 14:55 Lr IV 03/22/22 08:03 999 mls/hr .Q8H PRN Titration L&D Protocol Protocol Past Medical History Medical History Anxiety and depression Encounter for anatomic survey Encounter for pre-operative examination High cholesterol History of premature rupture of membranes (PPROM) PSPROM at 30 weeks delivery at 34 [place] [facility] [place]x of migraines Miscarriage Ovarian cyst Pseudocholinesterase deficiency Varicella vaccination Exercise / Class Metabolic Activity II 4-5 Yardwork/Stairs/Walk up hill Past Family History Family History Grandfather (Paternal) Diabetes Dyslipidemia Blood clot in vein Grandmother (Paternal) Diabetes Grandmother (Maternal) Heart disease Hypertension Kidney stones, calcium oxalate Breast cancer Grandfather (Paternal) Heart disease Aunt Peter's thyroiditis Thyroid disease Endometriosis Mother Thyroid disease Endometriosis Ovarian cancer Denies family history of Colorectal cancer Past Surgical History Surgical History Hx of tonsillectomy [place] teeth removed Past Anesthesia History Pseudocholinesterase Deficiency History of PONV No Hx of PONV and No Hx of Motion Sickness Social History Smoking Status: Former smoker Hx Alcohol Use: No Hx Substance Use: No substance use type: does not use Physical Exam Vital Signs Last Vital Signs Temp 37.2 C 03/20/22 09:00 Pulse 87 03/20/22 15:25 Resp 22 03/20/22 09:00 BP 134/95 03/20/22 15:25 Pulse Ox 99 03/20/22 15:23 Testing Laboratory Results 03/20/22 08:14 Blood Type O Positive 03/20/22 08:14 Antibody Screen NEGATIVE 03/20/22 08:14
--- NOTE | 2022-03-20 17:06 | Labor Progress Brief Note ---
Date of Service March 20, 2022 Subjective got epidural, was good but now has a painful hot spot. Assessment & Plan (1) Encounter for induction of labor: Plan slowly making change, address epidural with anesthesia. anticipate . Admission and Anticipated Discharge Date Admission Date: March 20, 2022 Physical Exam Physical Exam: cx--stretchy /-2 toco--q2-3min, pit at 11 efm--130s wtih mod variability, small accels, early with contractions. Results & Data ([facility]) Vital Signs (Past 12 Hours) Vital Signs Temp Pulse Resp BP Pulse Ox 03/20/22 09:00 37.2 C 22 03/20/22 17:01 89 L 03/20/22 17:01 93 H 03/20/22 17:00 81 03/20/22 17:00 131/87 03/20/22 16:59 96 03/20/22 16:59 82 03/20/22 16:54 97 03/20/22 16:54 82 03/20/22 16:50 90 03/20/22 16:50 83 03/20/22 16:50 137/91 03/20/22 16:49 97 03/20/22 16:49 86 03/20/22 16:44 99 03/20/22 16:44 87 03/20/22 16:39 85 L 03/20/22 16:39 87 03/20/22 16:40 82 03/20/22 16:40 118/82 03/20/22 16:34 95 03/20/22 16:34 82 03/20/22 16:32 89 L 03/20/22 16:31 90 03/20/22 16:32 91 H 03/20/22 16:31 132/84 03/20/22 16:28 98 03/20/22 16:28 84 03/20/22 16:26 90 03/20/22 16:26 96 H 03/20/22 16:23 97 03/20/22 16:23 82 03/20/22 16:19 81 03/20/22 16:19 125/85 03/20/22 16:18 99 03/20/22 16:18 81 03/20/22 16:13 97 03/20/22 16:13 81 03/20/22 16:10 81 03/20/22 16:10 129/81 03/20/22 16:08 98 03/20/22 16:08 78 03/20/22 16:03 96 03/20/22 16:03 83 03/20/22 15:59 77 03/20/22 15:59 133/89 03/20/22 15:58 100 03/20/22 15:58 77 03/20/22 15:53 98 03/20/22 15:53 79 03/20/22 15:50 77 03/20/22 15:50 137/92 03/20/22 15:48 98 03/20/22 15:48 80 03/20/22 15:43 98 03/20/22 15:43 79 03/20/22 15:39 81 03/20/22 15:39 138/87 03/20/22 15:38 99 03/20/22 15:38 83 03/20/22 15:37 87 03/20/22 15:37 146/93 H 03/20/22 15:35 81 03/20/22 15:35 141/87 H 03/20/22 15:31 20 03/20/22 15:31 37.1 C 20 03/20/22 15:33 99 03/20/22 15:33 82 03/20/22 15:33 145/93 H 03/20/22 15:31 77 03/20/22 15:31 142/83 H 03/20/22 15:29 83 03/20/22 15:29 142/90 H 03/20/22 15:28 99 03/20/22 15:28 87 03/20/22 15:28 90 03/20/22 15:28 140/102 H 03/20/22 15:25 87 03/20/22 15:25 134/95 03/20/22 15:23 99 03/20/22 15:23 85 03/20/22 15:23 136/91 03/20/22 15:18 100 03/20/22 15:18 90 03/20/22 15:13 100 03/20/22 15:13 96 H 03/20/22 15:08 100 03/20/22 15:08 96 H 03/20/22 15:06 92 03/20/22 15:06 99 H 03/20/22 15:03 99 03/20/22 15:03 86 03/20/22 14:58 99 03/20/22 14:58 80 03/20/22 14:53 99 03/20/22 14:53 86 03/20/22 14:36 77 03/20/22 14:36 124/78 03/20/22 14:06 77 03/20/22 14:06 145/83 H 03/20/22 13:36 81 03/20/22 13:36 128/84 03/20/22 13:06 80 03/20/22 13:06 117/69 03/20/22 12:36 82 03/20/22 12:36 125/82 03/20/22 12:06 83 03/20/22 12:06 132/86 03/20/22 11:36 76 03/20/22 11:36 129/87 03/20/22 11:06 72 03/20/22 11:06 133/85 03/20/22 10:36 82 03/20/22 10:36 123/79 03/20/22 10:06 76 03/20/22 10:06 127/86 03/20/22 08:27 90 125/83 Coding Level of Care Code None Diagnoses Encounter for induction of labor Z34.90
--- NOTE | 2022-03-20 17:45 | Labor Progress Brief Note ---
Date of Service March 20, 2022 Subjective very uncomfortable, anesthesia addressing. Assessment & Plan (1) Encounter for induction of labor: Plan anticipate soon. fetus overall reassuring. Admission and Anticipated Discharge Date Admission Date: March 20, 2022 Physical Exam Physical Exam: cx--8/100/-1 toco--q2min efm--120s with mod variabiltiy, early with ctx, +accesl Results & Data ([facility]) Vital Signs (Past 12 Hours) Vital Signs Temp Pulse Resp BP Pulse Ox 03/20/22 09:00 37.2 C 22 03/20/22 17:40 90 03/20/22 17:40 104 H 03/20/22 17:39 95 03/20/22 17:39 95 H 03/20/22 17:37 97 H 03/20/22 17:37 162/65 H 03/20/22 17:35 84 L 03/20/22 17:35 89 03/20/22 17:34 98 03/20/22 17:34 96 H 03/20/22 17:34 145/83 H 03/20/22 17:32 88 03/20/22 17:32 149/84 H 03/20/22 17:29 89 L 03/20/22 17:29 89 03/20/22 17:30 94 H 03/20/22 17:30 144/80 H 03/20/22 17:29 89 L 03/20/22 17:29 89 03/20/22 17:28 91 H 03/20/22 17:28 153/90 H 03/20/22 17:26 89 03/20/22 17:26 146/84 H 03/20/22 17:24 98 03/20/22 17:24 101 H 03/20/22 17:25 92 H 03/20/22 17:25 148/86 H 03/20/22 17:24 88 L 03/20/22 17:24 89 03/20/22 17:22 83 03/20/22 17:22 141/81 H 03/20/22 17:20 96 H 03/20/22 17:20 137/81 03/20/22 17:19 99 03/20/22 17:19 88 03/20/22 17:18 82 03/20/22 17:18 131/76 03/20/22 17:17 92 H 03/20/22 17:17 146/97 H 03/20/22 17:14 96 03/20/22 17:15 90 03/20/22 17:14 83 03/20/22 17:15 88 03/20/22 17:10 80 03/20/22 17:10 140/90 03/20/22 17:09 98 03/20/22 17:09 85 03/20/22 17:04 96 03/20/22 17:04 85 03/20/22 17:01 89 L 03/20/22 17:01 93 H 03/20/22 17:00 81 03/20/22 17:00 131/87 03/20/22 16:59 96 03/20/22 16:59 82 03/20/22 16:54 97 03/20/22 16:54 82 03/20/22 16:50 90 03/20/22 16:50 83 03/20/22 16:50 137/91 03/20/22 16:49 97 03/20/22 16:49 86 03/20/22 16:44 99 03/20/22 16:44 87 03/20/22 16:39 85 L 03/20/22 16:39 87 03/20/22 16:40 82 03/20/22 16:40 118/82 03/20/22 16:34 95 03/20/22 16:34 82 03/20/22 16:32 89 L 03/20/22 16:31 90 03/20/22 16:32 91 H 03/20/22 16:31 132/84 03/20/22 16:28 98 03/20/22 16:28 84 03/20/22 16:26 90 03/20/22 16:26 96 H 03/20/22 16:23 97 03/20/22 16:23 82 03/20/22 16:19 81 03/20/22 16:19 125/85 03/20/22 16:18 99 03/20/22 16:18 81 03/20/22 16:13 97 03/20/22 16:13 81 03/20/22 16:10 81 03/20/22 16:10 129/81 03/20/22 16:08 98 11/17/22 16:08 78 03/20/22 16:03 96 03/20/22 16:03 83 03/20/22 15:59 77 03/20/22 15:59 133/89 03/20/22 15:58 100 03/20/22 15:58 77 03/20/22 15:53 98 03/20/22 15:53 79 03/20/22 15:50 77 03/20/22 15:50 137/92 03/20/22 15:48 98 03/20/22 15:48 80 03/20/22 15:43 98 03/20/22 15:43 79 03/20/22 15:39 81 03/20/22 15:39 138/87 03/20/22 15:38 99 03/20/22 15:38 83 03/20/22 15:37 87 03/20/22 15:37 146/93 H 03/20/22 15:35 81 03/20/22 15:35 141/87 H 03/20/22 15:31 20 03/20/22 15:31 37.1 C 20 03/20/22 15:33 99 03/20/22 15:33 82 03/20/22 15:33 145/93 H 03/20/22 15:31 77 03/20/22 15:31 142/83 H 03/20/22 15:29 83 03/20/22 15:29 142/90 H 03/20/22 15:28 99 03/20/22 15:28 87 03/20/22 15:28 90 03/20/22 15:28 140/102 H 03/20/22 15:25 87 03/20/22 15:25 134/95 03/20/22 15:23 99 03/20/22 15:23 85 03/20/22 15:23 136/91 03/20/22 15:18 100 03/20/22 15:18 90 03/20/22 15:13 100 03/20/22 15:13 96 H 03/20/22 15:08 100 03/20/22 15:08 96 H 03/20/22 15:06 92 03/20/22 15:06 99 H 03/20/22 15:03 99 03/20/22 15:03 86 03/20/22 14:58 99 03/20/22 14:58 80 03/20/22 14:53 99 03/20/22 14:53 86 03/20/22 14:36 77 03/20/22 14:36 124/78 03/20/22 14:06 77 03/20/22 14:06 145/83 H 03/20/22 13:36 81 03/20/22 13:36 128/84 03/20/22 13:06 80 03/20/22 13:06 117/69 03/20/22 12:36 82 03/20/22 12:36 125/82 03/20/22 12:06 83 03/20/22 12:06 132/86 03/20/22 11:36 76 03/20/22 11:36 129/87 03/20/22 11:06 72 03/20/22 11:06 133/85 03/20/22 10:36 82 03/20/22 10:36 123/79 03/20/22 10:06 76 03/20/22 10:06 127/86 03/20/22 08:27 90 125/83 Coding Level of Care Code None Diagnoses Encounter for induction of labor Z34.90
--- NOTE | 2022-03-20 18:03 | Communication Note ---
Date of Service: March 20, 2022 pt with sig pain on left side. did not respond to 8ml 2% lido with epi in divided doses. vss. pt 8cm and requesting pain relief. pulled epidural and did cse (same technique as prior epidural but gave 1ml of 0.25% bupivicaine via sab). excellent pain control. vss. will continue to monitor
[2022-03-20] MEDS ORDERED: ACETAMINOPHEN 325 MG TAB PO PRN (19:48)
[2022-03-20] MEDS ORDERED: DIPHTHERIA/TETANUS/PERTUSSIS 0.5 ML SYR/VIAL IM ONE (19:48)
[2022-03-20] MEDS ORDERED: BENZOCAINE 20% AER SPR 82.5 GM CAN EXT PRN (19:48)
[2022-03-20] MEDS ORDERED: METHYLERGONOVINE MALEATE 0.2 MG/ML AMP IM ONE (19:48)
[2022-03-20] MEDS ORDERED: HYDROCORTISONE ACETATE 25 MG SUPP PR PRN (19:48)
[2022-03-20] MEDS ORDERED: bisacodyL 10 MG SUPP PR PRN (19:48)
[2022-03-20] MEDS ORDERED: oxyCODONE/ACETAMINOPHEN 5mg/325mg TAB PO PRN (19:48)
--- NOTE | 2022-03-20 19:53 | Delivery Summary ---
Vaginal Delivery Summary Date of Service March 20, 2022 Vaginal Delivery Summary [facility] Pre-operative Diagnosis: at 40 weeks Post-operative Diagnosis: same Procedure: pitocin induction arom epidural EBL: 300cc Anesthesia: epidural Procedure: Patient presented to labor and delivery for induction of labor for postdates with favorable cervix. pitocin induction. Underwent arom for clear fluid then got epidural. She progressed to c/c/+3. The patient pushed for one contraction to deliver a viable male in coy position. A nuchal cord was reduced and the rest of the baby was delivered easily. The baby was vigorous. The nose and mouth were bulb suctioned and the was placed in the maternal abdomen for drying and attention. Cord was clamped and cut at one minute of life. Cord blood and segment obtained. Placenta delivered spontan eous, intact with a three vessel cord. Cervix/sulci/rectum/perineum were intact. Hemostasis obtained with dilute pitocin and fundal massage and one dose of methergine. Apgars were 8/9. Mother and baby doing well at the end of the delivery. [facility] Vaginal Delivery Charge Delivery Type Details: [facility]
--- NOTE | 2022-03-20 20:16 | Anesthesia Procedure Note ---
Date of Service March 20, 2022 Anesthesia Post Epidural Note Vital Signs Vital Signs: Temp Pulse Resp BP Pulse Ox 37.0 C 90 18 138/70 89 L 03/20/22 19:00 03/20/22 20:15 03/20/22 19:00 03/20/22 20:15 03/20/22 20:10 Pain Intensity Lower Abdomen: Pain Intensity: 4 Notes Mental Status: alert / awake / arousable and participated in evaluation Patient Amnestic to Procedure: No Nausea / Vomiting: adequately controlled Pain: adequately controlled Airway Patency, RR, SpO2: stable & adequate BP & HR: stable & adequate Hydration State: stable & adequate Neuraxial Anesthesia: was administered and sensory block is resolving Anesthetic Complications: no major complications apparent and Pt Satisfied with anesthetic care Epidural: Removed without complications and With tip intact
[2022-03-20] MEDS: DOCUSATE SODIUM 100 MG CAP PO SCH (21:53)
[2022-03-21] MEDS: IBUPROFEN 600 MG TAB PO PRN ×4 (00:09→19:36)
[2022-03-21 06:48] LABS: Hematocrit (blood only) 29.4 % (34.1-44.9); Hemoglobin 9.5 g/dl (12.0-16.0)
--- NOTE | 2022-03-21 06:52 | Obstetrical Progress Note ---
Date of Service March 21, 2022 Assessment & Plan (1) Vaginal delivery: Plan Doing well. Fourth baby. Would like d/c home this evening if all goes well. Day #:: 1 Subjective Ambulation: ambulating normally Voiding: no voiding problems Passing Gas:: Yes Diet Tolerance:: regular diet Lochia:: Small Feeding Type:: bottle feeding NOtes cramping Physical Exam Constitutional WD/WN, vitals as above Cardiovascular Extremities: + edema (tr); no calf tenderness Gastrointestinal (Abdomen) obese, soft, nt, nd ff/ nt at u Psychiatric A+Ox3, euthymic affect Results & Data ([facility]) Vital Signs (Past 12 Hours) Vital Signs Temp Pulse Pulse Resp BP BP Pulse Ox 03/21/22 00:00 36.6 C 83 16 131/83 96 03/20/22 22:48 36.9 C 94 H 18 138/83 96 03/20/22 21:49 36.8 C 18 03/20/22 19:00 37.0 C 18 03/20/22 21:48 92 H 03/20/22 21:48 137/88 03/20/22 21:47 91 H 03/20/22 21:47 141/87 H 03/20/22 21:33 93 H 03/20/22 21:33 138/86 03/20/22 21:18 87 03/20/22 21:18 135/78 03/20/22 21:03 82 03/20/22 21:03 142/82 H 03/20/22 20:48 89 03/20/22 20:48 140/78 03/20/22 20:33 88 03/20/22 20:33 137/87 03/20/22 20:15 90 03/20/22 20:15 138/70 03/20/22 20:10 89 L 03/20/22 20:10 92 H 03/20/22 20:09 96 03/20/22 20:09 94 H 03/20/22 20:10 94 H 03/20/22 20:10 133/68 03/20/22 20:04 98 03/20/22 20:04 96 H 03/20/22 20:04 126/83 03/20/22 19:59 96 03/20/22 19:59 94 H 03/20/22 19:59 91 H 03/20/22 19:59 133/76 03/20/22 19:56 90 03/20/22 19:56 94 H 03/20/22 19:54 95 03/20/22 19:54 90 03/20/22 19:50 90 03/20/22 19:50 100 H 03/20/22 19:50 152/68 H 03/20/22 19:49 94 03/20/22 19:49 100 H 03/20/22 19:44 100 03/20/22 19:44 98 H 03/20/22 19:41 96 H 03/20/22 19:41 145/77 H 03/20/22 19:39 98 03/20/22 19:39 94 H 03/20/22 19:34 95 03/20/22 19:34 100 H 03/20/22 19:32 91 H 03/20/22 19:32 136/88 03/20/22 19:29 99 03/20/22 19:29 92 H 03/20/22 19:24 97 03/20/22 19:24 92 H 03/20/22 19:19 97 03/20/22 19:19 104 H 03/20/22 19:17 93 H 03/20/22 19:17 141/80 H 03/20/22 19:14 95 03/20/22 19:14 101 H 03/20/22 19:09 97 03/20/22 19:09 103 H 03/20/22 19:04 97 03/20/22 19:04 111 H 03/20/22 19:03 87 03/20/22 19:03 147/80 H 03/20/22 18:59 92 03/20/22 19:00 91 03/20/22 18:59 95 H 03/20/22 19:00 92 H 03/20/22 18:54 96 03/20/22 18:54 85 O2 Del Method 03/21/22 00:00 Room Air 03/20/22 22:48 Room Air 03/20/22 21:49 03/20/22 19:00 03/20/22 21:48 03/20/22 21:48 03/20/22 21:47 03/20/22 21:47 03/20/22 21:33 03/20/22 21:33 03/20/22 21:18 03/20/22 21:18 03/20/22 21:03 03/20/22 21:03 03/20/22 20:48 03/20/22 20:48 03/20/22 20:33 03/20/22 20:33 03/20/22 20:15 03/20/22 20:15 03/20/22 20:10 03/20/22 20:10 03/20/22 20:09 03/20/22 20:09 03/20/22 20:10 03/20/22 20:10 03/20/22 20:04 03/20/22 20:04 03/20/22 20:04 03/20/22 19:59 03/20/22 19:59 03/20/22 19:59 03/20/22 19:59 03/20/22 19:56 03/20/22 19:56 03/20/22 19:54 03/20/22 19:54 03/20/22 19:50 03/20/22 19:50 03/20/22 19:50 03/20/22 19:49 03/20/22 19:49 03/20/22 19:44 03/20/22 19:44 03/20/22 19:41 03/20/22 19:41 03/20/22 19:39 03/20/22 19:39 03/20/22 19:34 03/20/22 19:34 03/20/22 19:32 03/20/22 19:32 03/20/22 19:29 03/20/22 19:29 03/20/22 19:24 03/20/22 19:24 03/20/22 19:19 03/20/22 19:19 03/20/22 19:17 03/20/22 19:17 03/20/22 19:14 03/20/22 19:14 03/20/22 19:09 03/20/22 19:09 03/20/22 19:04 03/20/22 19:04 03/20/22 19:03 03/20/22 19:03 03/20/22 18:59 03/20/22 19:00 03/20/22 18:59 03/20/22 19:00 03/20/22 18:54 03/20/22 18:54
[2022-03-21] MEDS: PRENATAL VITAMIN 1 TAB PO SCH (07:33)
[2022-03-21] MEDS: DOCUSATE SODIUM 100 MG CAP PO SCH ×2 (07:33→20:00)
[2022-03-21] MEDS ORDERED: bisacodyL 5 MG TABEC PO SCH (20:00)
[2022-03-22] MEDS: IBUPROFEN 600 MG TAB PO PRN ×2 (00:05→04:56)
--- NOTE | 2022-03-22 07:37 | Obstetrical Progress Note ---
Date of Service March 22, 2022 Assessment & Plan (1) Vaginal delivery: Plan 21 yo PP2 from , doing well -Meeting all pp milestones -O+/rubella immune/ -f/u 6 weeks for appt, stable for dc home today Subjective Ambulation: ambulating normally Voiding: no voiding problems Passing Gas:: Yes Diet Tolerance:: regular diet Lochia:: Small Feeding Type:: bottle feeding Pain well managed with medication Review of Systems Denies fevers, chills, n/v, JOSÉ, CP, SOB Physical Exam Constitutional WD/WN, vitals as above no acute distress Respiratory normal respiratory effort, lungs clear to auscultation Cardiovascular RRR, no murmur, no edema Gastrointestinal (Abdomen) Percussion/Palpation: abdomen soft; abdomen nontender fundus firm at umbilicus and NT Musculoskeletal BLE symmetric, nonerythematous, nontender Results & Data ([facility]) Vital Signs (Past 12 Hours) Vital Signs Temp Pulse Resp BP Pulse Ox O2 Del Method 03/21/22 23:02 97.5 F L 84 18 126/83 95 Room Air
[2022-03-22] MEDS: PRENATAL VITAMIN 1 TAB PO SCH (07:48)
[2022-03-22] MEDS: DOCUSATE SODIUM 100 MG CAP PO SCH (07:48)
[2022-03-22 08:18] VITALS: BP 131/87; PULSE 78; TEMP 97.9; O2SAT 97
== END 2022-03-22 14:15 | disposition home or self-care (01) | DRG 807 ==
LOC: 4S1 07:52 → 4E2 23:27

== ENCOUNTER 2023-08-19 12:57 | Inpatient (IN) ==
[2023-08-19] MEDS ORDERED: LIDOCAINE 1% LOCAL 20 ML VIAL INFIL PRN (13:42)
--- NOTE | 2023-08-19 13:52 | History & Physical Report ---
Date of Service August 19, 2023 Assessment & Plan (1) Encounter for induction of labor: (2) complicated by umbilical cord varix in antepartum period: (3) Obesity affecting : (4) Short interval between pregnancies complicating , antepartum: Plan admit, iv, labs. start pitocin. fhts categ 1. wu ripening balloon placed. will plan arom when able. support given as pt states will not have a support person of her own. Admission and Anticipated Discharge Date Admission Date: August 19, 2023 History of Present Illness Chief Complaint: induction Primary Care Provider: Radha Mckinney 22yo at 40+wks ega presents LD with cc of planned induction for umbilical vein varix, obesity. She notes no rom, vb. FM. No ctx. PNC c/b 1. obesity 2. umbilical vein varix--saw mfm 3. poor social situation, PFA from FOB, mother passed lung cancer during preg 4. Abnl pap, due for colpo in preg but could not make it, plan PP colpo with [facility] 5. Wants btl 6. Short interval PNL rh pos, ri, gbs neg OBH: x 4 (one at 34wks, all others term) sab x 1 GYNH: nl paps, no stds Allergies Allergy/AdvReac Type Severity Reaction Status Date / Time adhesive tape Allergy plastic Verified 08/19/23 13:50 tape = rash succinylcholine AdvReac Severe pseudocholinesterase Verified 08/18/23 10:08 deficiency ANESTHESIA Allergy Unknown PSEUDOCHLOINESTERASE Uncoded 08/18/23 10:08 DEFIENCY Home Medications Medication Instructions Recorded Confirmed Type prenat.vits,charity,ubl-gjrb-ryrcj 1 tab PO DAILY 08/30/21 08/18/23 History escitalopram oxalate [Lexapro] PO 12/31/22 08/18/23 History Patient History Medical History Varicella vaccination Encounter for pre-operative examination Pseudocholinesterase deficiency History of premature rupture of membranes (PPROM) PSPROM at 30 weeks delivery at 34 weeks at [facility] Anxiety and depression Ovarian cyst Hx of migraines High cholesterol Miscarriage Surgical History [place] teeth removed Hx of tonsillectomy Family History Grandfather (Paternal) Diabetes Dyslipidemia Blood clot in vein Grandmother (Paternal) Diabetes Grandmother (Maternal) Heart disease Hypertension Kidney stones, calcium oxalate Breast cancer Grandfather (Paternal) Heart disease Aunt Epter's thyroiditis Thyroid disease Endometriosis Mother Thyroid disease Endometriosis Ovarian cancer Lung cancer Denies family history of Colorectal cancer Social History Smoking Status: Never smoker Second Hand Exposure: No; Do You Dip or Chew Tobacco: No; Hx Alcohol Use: No Hx Substance Use: No Preferred Language: Bulgarian Communication Ability: Effective Visual Impairment: No Limitations Diamond Grinder Required: No Beliefs That Will Affect Care: None marital status: marital status details: declines to list FOB Current Living Situation: Spouse and Family Current Living Situation Comment: lives with spouse, 4 children, hamster current occupational status: unemployed current occupation: homemaker Feels Safe at Home: Yes Assistive Devices: None Review of Systems as per Subjective / HPI Physical Exam Constitutional: WD/WN, vitals as above Respiratory: normal respiratory effort, lungs clear to auscultation Cardiovascular: Rate/Rhythm: regular rate and regular rhythm Gastrointestinal (Abdomen): soft gravid nt efw 7-8# Musculoskeletal: no edema nontender calves Neurologic: grossly normal Psychiatric: A+Ox3, euthymic affect Genitourinary: Manual OB Exam: + cervical dilation (2), + cervical effacement 20% and + station -2 OB Exam Monitor Tracing: + external FHT monitor used, + external uterine monitor used (no ctx), + category I and + normal FHT variability PROCEDURE: sse cx visualized, grasped on ant lip with ring forcep, wu through os and balloon inflated with 40cc sterile water. Spec removed, wu taped to leg. pt ashvin well. Results & Data Vital Signs (Past 12 Hours) Vital Signs Pulse BP 08/19/23 13:09 93 H 117/67 Coding Level of Care Code None Diagnoses Encounter for induction of labor Z34.90 complicated by umbilical cord varix in antepartum period O26.899 Obesity affecting O99.210 Short interval between pregnancies complicating , antepartum O09.899
[2023-08-19] MEDS: LACTATED RINGER'S 1,000 ML IV PRN (14:10)
[2023-08-19 14:29] LABS: Hematocrit (blood only) 28.8 % (37.0-47.0); Hemoglobin 9.7 g/dl (12.0-16.0); Mean Corpuscular Hgb Conc 33.7 g/dL (32.0-36.0); Mean Platelet Volume 10.5 fL (9.4-12.4); Platelet Count 189 K/uL (130-400); RDW Coefficient of Variation 14.5 % (11.5-14.5); RDW Standard Deviation 42.9 fL (36.4-46.3); Red Blood Count 3.47 M/uL (4.20-5.40); White Blood Count 8.23 K/ul (4.8-10.8)
[2023-08-19] MEDS: OXYTOCIN 30 UNITS/NSS 30 UNITS/500 ML BAG IV PRN ×2 (14:30→20:57)
[2023-08-19] MEDS ORDERED: SODIUM CHLORIDE 0.9% 250 ML IV PRN (14:54)
--- NOTE | 2023-08-19 15:56 | Labor Progress Brief Note ---
Date of Service August 19, 2023 Subjective wu did fall out, pit infusing Assessment & Plan (1) Encounter for induction of labor: (2) complicated by umbilical cord varix in antepartum period: (3) Obesity affecting : (4) Short interval between pregnancies complicating , antepartum: Plan good cx change. c/w pit to get labor pattern. epidural when desires. fhts categ 1. Admission and Anticipated Discharge Date Admission Date: August 19, 2023 Physical Exam Constitutional: WD/WN, vitals as above Genitourinary: Manual OB Exam: + cervical dilation (5), + cervical effacement (75%), + station -2 and + amniotic fluid (arom) clear OB Exam Monitor Tracing: + external FHT monitor used, + external uterine monitor used (q2-3), + category I and + normal FHT variability Results & Data Vital Signs (Past 12 Hours) Vital Signs Temp Pulse Resp BP O2 Del Method 08/19/23 15:38 78 112/69 08/19/23 15:00 18 08/19/23 15:00 18 08/19/23 14:30 16 08/19/23 14:30 16 08/19/23 14:00 18 08/19/23 14:00 18 08/19/23 13:51 98.2 F 18 Room Air 08/19/23 13:09 93 H 117/67 Coding Level of Care Code None Diagnoses Encounter for induction of labor Z34.90 complicated by umbilical cord varix in antepartum period O26.899 Obesity affecting O99.210 Short interval between pregnancies complicating , antepartum O09.899
[2023-08-19] MEDS ORDERED: ePHEDrine sulfate 50 MG/ML AMP IV PRN (16:48)
[2023-08-19] MEDS ORDERED: NALBUPHINE HCL 5 MG in SYRINGE 0 ML IV PRN (16:48)
[2023-08-19] MEDS ORDERED: NALOXONE HCL 0.4 MG/1 ML VIAL/CARP IV PRN (16:48)
[2023-08-19] MEDS ORDERED: fentaNYL citrate PF 100 MCG/2 ML VIAL EPI PRN (16:48)
[2023-08-19] MEDS ORDERED: fentANYL 2 MCG/ML BUPIVacaine 0.125%-NSS 100ML BAG EPI PRN (16:48)
[2023-08-19] MEDS ORDERED: ROPIVACAINE 0.5% PF 5 MG/ML 20 ML VIAL EPI PRN (16:48)
[2023-08-19] MEDS ORDERED: LIDOCAINE 2% MPF LOCAL 5 ML VIAL EPI PRN (16:48)
[2023-08-19] MEDS ORDERED: NALOXONE HCL 1 MG in SODIUM CHLORIDE 0.9% 1,000 ML IV PRN (16:48)
[2023-08-19] MEDS ORDERED: BUPIVACAINE 0.25% PF 30 ML VIAL EPI PRN (16:48)
[2023-08-19] MEDS ORDERED: SODIUM CHLORIDE 0.9% PF INJ 10 ML VIAL EPI PRN (16:48)
[2023-08-19] MEDS ORDERED: diphenhydrAMINE 50 MG/ML VIAL IV PRN (16:48)
--- NOTE | 2023-08-19 16:48 | Anesthesiology Consultation ---
Date of Service August 19, 2023 Assessment & Plan Chart Review Chart Review: Acceptable Risk for Labor Epidural Consults Requested none History Height/Weight Height: 5 ft 5 in Weight: 96.615 kg Allergies Allergy/AdvReac Type Severity Reaction Status Date / Time adhesive tape Allergy plastic Verified 08/19/23 13:50 tape = rash succinylcholine AdvReac Severe pseudocholinesterase Verified 08/18/23 10:08 deficiency latex AdvReac Itching Verified 08/19/23 14:49 ANESTHESIA Allergy Unknown PSEUDOCHLOINESTERASE Uncoded 08/18/23 10:08 DEFIENCY Medications Home Medications Medication Instructions Recorded Confirmed Last Taken prenat.vits,charity,xoo-ebkv-qyykt 1 tab PO DAILY 08/30/21 08/18/23 Unknown escitalopram oxalate [Lexapro] PO 12/31/22 08/18/23 Unknown Active Medications Generic Name Dose Route Start Last Admin Trade Name Freq PRN Reason Stop Dose Admin Oxytocin 30 units in 500 mls @ 5 mls/hr 08/19/23 13:42 08/19/23 15:45 Pitocin 30 Units/Nss IV 08/21/23 13:41 0.3 units/hr .Q24H PRN 5 mls/hr Labor Induction/Augmentation Titration Protocol 0.3 UNITS/HR Lactated Ringer's 1,000 mls @ 125 mls/hr 08/19/23 13:42 08/19/23 14:10 Lr IV 08/21/23 13:41 125 mls/hr .Q8H PRN Administration L&D Protocol Protocol Past Medical History Medical History Varicella vaccination Encounter for pre-operative examination Pseudocholinesterase deficiency History of premature rupture of membranes (PPROM) PSPROM at 30 weeks delivery at 34 weeks at [facility] Anxiety and depression Ovarian cyst Hx of migraines High cholesterol Miscarriage Past Family History Family History Grandfather (Paternal) Diabetes Dyslipidemia Blood clot in vein Grandmother (Paternal) Diabetes Grandmother (Maternal) Heart disease Hypertension Kidney stones, calcium oxalate Breast cancer Grandfather (Paternal) Heart disease Aunt Peter's thyroiditis Thyroid disease Endometriosis Mother Thyroid disease Endometriosis Ovarian cancer Lung cancer Denies family history of Colorectal cancer Past Surgical History Surgical History [place] teeth removed Hx of tonsillectomy Social History Smoking Status: Former smoker Do You Dip or Chew Tobacco: No Hx Alcohol Use: No Hx Substance Use: No substance use type: does not use Review of Systems Constitutional: as per Subjective / HPI Physical Exam Vital Signs Last Vital Signs Temp 36.8 C 08/19/23 13:51 Pulse 77 08/19/23 16:47 Resp 18 08/19/23 16:00 BP 126/88 08/19/23 16:47 Pulse Ox 87 L 08/19/23 16:47 O2 Del Method Room Air 08/19/23 13:51 Constitutional WD/WN, vitals as above Respiratory normal respiratory effort, lungs clear to auscultation Cardiovascular Rate/Rhythm: regular rate and regular rhythm Psychiatric A+Ox3, euthymic affect Genitourinary Manual OB Exam: + cervical dilation (5), + cervical effacement (75%) + 20%, + station + -2 and + amniotic fluid (arom) + clear OB Exam Monitor Tracing: + external FHT monitor used, + external uterine monitor used (q2-3), + category I and + normal FHT variability Testing Laboratory Results 08/19/23 14:10 Blood Type O Positive 08/19/23 14:10 Antibody Screen NEGATIVE 08/19/23 14:10
[2023-08-19] MEDS: fentANYL 2 MCG/ML BUPIVacaine 0.125%-NSS 100ML BAG ONE (17:16)
[2023-08-19] MEDS: BUPIVACAINE 0.25% PF 30 ML VIAL ONE (17:19)
[2023-08-19] MEDS: LIDOCAINE 2%/EPINEPHRINE 1:200,000 20 ML PF ONE (17:19)
[2023-08-19] MEDS: fentaNYL citrate PF 100 MCG/2 ML VIAL EPI STA (17:20)
[2023-08-19] MEDS: LIDOCAINE 2%/EPINEPHRINE 1:200,000 20 ML PF EPI STA (17:20)
[2023-08-19] MEDS: fentaNYL citrate PF 100 MCG/2 ML VIAL ONE (17:20)
[2023-08-19] MEDS: BUPIVACAINE 0.25% PF 30 ML VIAL EPI STA (17:20)
[2023-08-19] MEDS: SODIUM CHLORIDE 0.9% PF INJ 10 ML VIAL EPI STA (17:22)
--- NOTE | 2023-08-19 20:41 | Delivery Summary ---
Vaginal Delivery Summary Date of Service August 19, 2023 Vaginal Delivery Summary The patient dilated to complete and pushed to deliver a viable female infant Apgars 8 and 9 via over intact perineum. Mouth and nose bulb suctioned at perineum. Loose nuchal x 2 reduced. Shoulders and body delivered with ease. Infant was vigorous and crying at . Cord clamped at 36 seconds of life and to maternal abdomen where the cord was then doubly clamped and cut. Placenta delivered spontaneously and intact, three-vessel cord. Hemostasis achieved with dilute pitocin and uterine massage. Cervix and sulci intact. QBL 49cc. Mother and baby stable in recovery. [facility] Vaginal Delivery Charge Delivery Type Details:
[2023-08-19] MEDS ORDERED: bisacodyL 10 MG SUPP PR PRN (21:56)
[2023-08-19] MEDS ORDERED: HYDROCORTISONE ACETATE 25 MG SUPP PR PRN (21:56)
[2023-08-19] MEDS ORDERED: OXYTOCIN 30 UNITS/NSS 30 UNITS/500 ML BAG IV PRN (21:56)
[2023-08-19] MEDS ORDERED: oxyCODONE/ACETAMINOPHEN 5mg/325mg TAB PO PRN (21:56)
[2023-08-19] MEDS: ePHEDrine sulfate 50 MG/ML AMP ONE (22:20)
[2023-08-19] MEDS: SODIUM CHLORIDE 0.9% PF INJ 10 ML VIAL ONE (22:21)
[2023-08-19] MEDS: DOCUSATE SODIUM 100 MG CAP PO SCH (22:24)
[2023-08-19] MEDS: IBUPROFEN 600 MG TAB PO PRN (22:24)
[2023-08-19] MEDS: OXYTOCIN 20 UNITS/LR 1,002 ML IV SCH (22:52)
--- NOTE | 2023-08-20 03:40 | Obstetrical Progress Note ---
Date of Service August 20, 2023 Assessment & Plan (1) examination following vaginal delivery: Plan doing well, stable. rhpos, ri, bottle feeding. routine care. desires btl, will stop by office and sign ma tubal papers before going home after dc from here. pt aware. Day #:: 1 Subjective Ambulation: ambulating normally Voiding: no voiding problems Diet Tolerance:: regular diet Lochia:: Small Feeding Type:: bottle feeding no pain issues Constitutional: + as per Subjective / HPI Physical Exam Constitutional WD/WN, vitals as above Respiratory normal respiratory effort, lungs clear to auscultation Cardiovascular Rate/Rhythm: regular rate and regular rhythm Gastrointestinal (Abdomen) Inspection/Auscultation: abdomen normal to inspection Percussion/Palpation: abdomen soft Fundus firm 1cm down Musculoskeletal nt calves tr edema Neurologic grossly normal Psychiatric A+Ox3, euthymic affect Results & Data Vital Signs (Past 12 Hours) Vital Signs Temp Pulse Pulse Resp BP BP Pulse Ox 08/20/23 02:35 97.9 F 71 20 106/70 98 08/19/23 23:10 98.1 F 71 20 109/82 99 08/19/23 22:35 98.6 F 18 08/19/23 22:20 70 120/69 08/19/23 22:06 76 122/74 08/19/23 22:05 76 18 122/74 08/19/23 21:50 79 102/63 08/19/23 21:36 73 93/59 L 08/19/23 21:35 73 18 93/59 L 08/19/23 21:20 97.9 F 18 08/19/23 21:20 80 109/64 08/19/23 21:11 78 98 08/19/23 21:06 77 97 08/19/23 21:05 80 16 109/64 08/19/23 21:05 75 124/70 08/19/23 21:01 139 H 99 08/19/23 20:56 78 98 08/19/23 20:51 77 118/59 L 97 08/19/23 20:50 97.9 F 18 08/19/23 20:47 91 H 94 08/19/23 20:46 90 98 08/19/23 20:41 84 98 08/19/23 20:36 90 98 08/19/23 20:35 97.7 F 18 08/19/23 20:35 86 92/65 L 08/19/23 20:31 89 98 08/19/23 20:30 86 106/66 08/19/23 20:26 97 H 98 08/19/23 20:25 22 08/19/23 20:25 22 08/19/23 20:21 90 99 08/19/23 20:16 86 100 08/19/23 20:15 82 128/80 08/19/23 20:11 91 H 99 08/19/23 20:06 78 100 08/19/23 20:01 92 H 99 08/19/23 20:00 80 128/82 08/19/23 19:56 82 100 08/19/23 19:51 79 99 08/19/23 19:46 77 100 08/19/23 19:45 78 120/77 08/19/23 19:41 80 100 08/19/23 19:36 80 99 08/19/23 19:31 75 98 08/19/23 19:30 18 08/19/23 19:30 18 08/19/23 19:29 73 121/74 08/19/23 19:26 77 98 08/19/23 19:21 80 98 08/19/23 19:16 74 98 08/19/23 19:14 85 117/75 08/19/23 19:11 79 99 08/19/23 19:06 74 99 08/19/23 19:01 79 95 08/19/23 19:00 98.6 F 68 20 110/69 08/19/23 18:56 71 99 08/19/23 18:51 79 100 08/19/23 18:46 75 99 08/19/23 18:45 76 116/73 08/19/23 18:41 79 100 08/19/23 18:36 74 100 08/19/23 18:31 100 08/19/23 18:31 76 08/19/23 18:31 86 119/69 08/19/23 18:30 16 08/19/23 18:30 16 08/19/23 18:26 75 100 08/19/23 18:21 74 100 08/19/23 18:16 75 100 08/19/23 18:14 76 97/71 L 08/19/23 18:11 72 100 08/19/23 18:06 76 100 08/19/23 18:01 77 100 08/19/23 18:00 18 08/19/23 18:00 18 08/19/23 17:59 75 91/69 L 89 L 08/19/23 17:56 82 100 08/19/23 17:51 81 100 08/19/23 17:46 79 100 08/19/23 17:41 83 100 08/19/23 17:40 88 112/67 08/19/23 17:36 85 100 08/19/23 17:35 75 109/61 08/19/23 17:31 86 91 08/19/23 17:30 72 124/74 08/19/23 17:28 74 121/72 08/19/23 17:26 99 08/19/23 17:26 83 08/19/23 17:26 79 115/70 08/19/23 17:24 78 110/73 08/19/23 17:22 82 118/72 08/19/23 17:21 81 100 08/19/23 17:20 81 117/74 08/19/23 17:18 81 125/77 08/19/23 17:16 99 08/19/23 17:16 77 08/19/23 17:16 76 120/79 08/19/23 17:14 82 124/82 08/19/23 17:12 87 132/88 08/19/23 17:11 84 100 08/19/23 17:10 83 131/81 08/19/23 17:08 98 H 141/97 H 08/19/23 17:06 91 H 145/95 H 100 08/19/23 17:04 82 139/91 08/19/23 17:03 85 92 08/19/23 17:01 98.2 F 81 100 08/19/23 16:56 74 100 08/19/23 16:51 75 100 08/19/23 16:47 77 126/88 87 L 08/19/23 16:46 79 100 08/19/23 16:32 81 127/86 08/19/23 16:18 75 137/80 08/19/23 16:02 80 128/80 08/19/23 16:00 18 08/19/23 16:00 18 O2 Del Method 08/20/23 02:35 Room Air 08/19/23 23:10 Room Air 08/19/23 22:35 08/19/23 22:20 08/19/23 22:06 08/19/23 22:05 08/19/23 21:50 08/19/23 21:36 08/19/23 21:35 08/19/23 21:20 08/19/23 21:20 08/19/23 21:11 08/19/23 21:06 08/19/23 21:05 08/19/23 21:05 08/19/23 21:01 08/19/23 20:56 08/19/23 20:51 08/19/23 20:50 08/19/23 20:47 08/19/23 20:46 08/19/23 20:41 08/19/23 20:36 08/19/23 20:35 08/19/23 20:35 08/19/23 20:31 08/19/23 20:30 08/19/23 20:26 08/19/23 20:25 08/19/23 20:25 08/19/23 20:21 08/19/23 20:16 08/19/23 20:15 08/19/23 20:11 08/19/23 20:06 08/19/23 20:01 08/19/23 20:00 08/19/23 19:56 08/19/23 19:51 08/19/23 19:46 08/19/23 19:45 08/19/23 19:41 08/19/23 19:36 08/19/23 19:31 08/19/23 19:30 08/19/23 19:30 08/19/23 19:29 08/19/23 19:26 08/19/23 19:21 08/19/23 19:16 08/19/23 19:14 08/19/23 19:11 08/19/23 19:06 08/19/23 19:01 08/19/23 19:00 08/19/23 18:56 08/19/23 18:51 08/19/23 18:46 08/19/23 18:45 08/19/23 18:41 08/19/23 18:36 08/19/23 18:31 08/19/23 18:31 08/19/23 18:31 08/19/23 18:30 08/19/23 18:30 08/19/23 18:26 08/19/23 18:21 08/19/23 18:16 08/19/23 18:14 08/19/23 18:11 08/19/23 18:06 08/19/23 18:01 08/19/23 18:00 08/19/23 18:00 08/19/23 17:59 08/19/23 17:56 08/19/23 17:51 08/19/23 17:46 08/19/23 17:41 08/19/23 17:40 08/19/23 17:36 08/19/23 17:35 08/19/23 17:31 08/19/23 17:30 08/19/23 17:28 08/19/23 17:26 08/19/23 17:26 08/19/23 17:26 08/19/23 17:24 08/19/23 17:22 08/19/23 17:21 08/19/23 17:20 08/19/23 17:18 08/19/23 17:16 08/19/23 17:16 08/19/23 17:16 08/19/23 17:14 08/19/23 17:12 08/19/23 17:11 08/19/23 17:10 08/19/23 17:08 08/19/23 17:06 08/19/23 17:04 08/19/23 17:03 08/19/23 17:01 08/19/23 16:56 08/19/23 16:51 08/19/23 16:47 08/19/23 16:46 08/19/23 16:32 08/19/23 16:18 08/19/23 16:02 08/19/23 16:00 08/19/23 16:00
[2023-08-20] MEDS: BENZOCAINE 20% SPRY 85 APPLN/85 GM CAN EXT PRN (06:29)
[2023-08-20] MEDS: ESCITALOPRAM OXALATE 10 MG TAB PO SCH (08:30)
[2023-08-20] MEDS: PRENATAL VITAMIN 1 TAB PO SCH (08:30)
--- NOTE | 2023-08-20 08:59 | Anesthesia Procedure Note ---
Date of Service August 20, 2023 Anesthesia Post Epidural Note Vital Signs Vital Signs: Temp Pulse Resp BP Pulse Ox O2 Del Method 36.6 C 71 20 106/70 98 Room Air 08/20/23 02:35 08/20/23 02:35 08/20/23 02:35 08/20/23 02:35 08/20/23 02:35 08/20/23 02:35 Pain Intensity Abdomen: Pain Intensity: 2 Notes Mental Status: alert / awake / arousable and participated in evaluation Patient Amnestic to Procedure: No Nausea / Vomiting: adequately controlled Pain: adequately controlled Airway Patency, RR, SpO2: stable & adequate BP & HR: stable & adequate Hydration State: stable & adequate Neuraxial Anesthesia: was administered and sensory block resolved Anesthetic Complications: no major complications apparent and Pt Satisfied with anesthetic care Epidural: Removed without complications and With tip intact
[2023-08-20] MEDS: DIPHTHER/TETAN/PERTUS Vaccine (Tdap, Adol/Adult) 0.5mL IM ONE (17:41)
[2023-08-20] MEDS: ACETAMINOPHEN 325 MG TAB PO PRN (19:41)
--- NOTE | 2023-08-21 05:32 | Obstetrical Progress Note ---
Date of Service August 21, 2023 Assessment & Plan (1) Encounter for care after hospital delivery: Plan: 22 yo post- day 2 s/p Continue post care Feels well today. Vital signs stable Encourage ambulation and Hgb stable, rubella immune Pain well controlled with ibuprofen Discharge home today, instructions explained to patient. Admission and Anticipated Discharge Date Admission Date: August 19, 2023 Supervising Physician Co-Signing Physician Notes Resident Physician Supervision Note: I interviewed and examined the patient. Discussed with Dr. Live and agree with findings and plan as documented in the note. Any exceptions or clarifications are listed here: Doing well. Plan d/c. Will stop by the office to sign MA [employer] papers. Instructions reviewed. Documented By: Altagracia Bains MD, FACOG Subjective 22 yo post- day 2 s/p Ambulation: ambulating normally Voiding: no voiding problems Passing Gas:: Yes Diet Tolerance:: regular diet Lochia:: Small Feeding Type:: breast feeding Current Pain Level: Minimal Resting comfortably this AM in NAD. Denies OJSÉ, CP, SOB, N/V/D, LE pain/swelling. Review of Systems Review of Systems: as per hpi Physical Exam Physical Exam: General: patient resting comfortably, NAD, non-toxic in appearance, AA&O x 4, answers questions appropriately. Skin: warm, dry, intact HEENT: NC/AT, anicteric sclera, conjunctiva without injection, moist mucus membranes. Heart: +S1/S2, regular, no m/r/g Lungs: equal air entry bilaterally, no rales/rhonchi/wheezes Abd: +BS, soft, NT/ND, uterine fundus firm at umbilicus Ext: warm, no clubbing/cyanosis or edema Neuro: nonfocal, patient AA&O x 4, speech intact, no facial droop, moving all extremities on command. Results & Data Vital Signs (Past 12 Hours) Vital Signs Temp Pulse Resp BP Pulse Ox O2 Del Method 08/20/23 23:41 36.5 C 69 18 116/83 98 Room Air 08/20/23 19:30 36.4 C L 74 16 111/73 98 Room Air Resident Activity Tracking Resident Involvement: Resident Care Provided Care Provided: OB Delivery
== END 2023-08-21 12:10 | disposition home or self-care (01) | DRG 807 ==
LOC: 4S1 12:57 → 4E2 23:00